=== PATIENT | male | born 1990 | race Caucasian/White ===

== ENCOUNTER 2016-07-13 14:01 | Emergency (ER) | payer BC ==
[~2016-07-13] VITALS: Ht 185.4 cm; Wt 86.2 kg
[2016-07-13 14:05] VITALS: BP 134/83
[2016-07-13 14:48] LABS: BASOPHILS # (AUTO) 0.2 K/uL (0.00-0.22); EOSINOPHILS # (AUTO) 0.1 K/uL (0-0.4); EOSINOPHILS % (AUTO) 1.4 % (0.0-4.0); HEMATOCRIT 43.5 % (36-52); HEMOGLOBIN 14.8 g/dL (12.0-18.0); LYMPHOCYTES # (AUTO) 2.2 K/uL (2.0-11.5); LYMPHOCYTES % (AUTO) 30.8 % (20.5-51.1); MEAN CORPUSCULAR HEMOGLOBIN 29 pg (27-31); MEAN CORPUSCULAR HGB CONC 34 g/dL (33-37); MEAN CORPUSCULAR VOLUME 86 fL (80-94); MONOCYTES # (AUTO) 0.3 K/uL (0.8-1.0); MONOCYTES % (AUTO) 4.8 % (1.7-9.3); NEUTROPHILS # (AUTO) 4.5 K/uL (1.8-7.7); PLATELET COUNT (AUTO) 300 K/uL (140-450); RED BLOOD CELL COUNT(AUTO) 5.05 MIL/uL (4.20-6.10); WHITE BLOOD COUNT (AUTO) 7.3 K/uL (4.8-10.8)
[2016-07-13 14:54] LABS: ANION GAP 12.9 (8-16); CALCIUM 9.1 mg/dL (8.5-10.1); CREATININE 1.3 mg/dL (0.6-1.3); POTASSIUM 3.9 mmol/L (3.5-5.1)
[2016-07-13 15:00] LABS: ALBUMIN 4.5 g/dL (3.4-5.0); TOTAL BILIRUBIN 0.3 mg/dL (0.0-1.0); TOTAL PROTEIN, SERUM 8.1 g/dL (6.4-8.2)
--- NOTE | 2016-07-13 15:35 | NUR ---
Pt taken to bed 7.
--- NOTE | 2016-07-13 15:44 | NUR ---
25/M presents to ED for evaluation of epigastric pain starting approximately 1330. Pt states "I was at work, sitting down." Pt c/o sharp pain to epigastric area, denies chest pain, radiating to upper back, intermittent. Pt denies pain at this time. Pt states "the pain was coming and going on the way here." Denies N/V/D. Denies fever or chills. Abdomen soft, non tender, active bowel sounds x 4 quadrants. Patient denies any medical hx. Patient is AOX4, clear coherent speech. All needs met. Pt is calm and relaxed, no signs of distress. VSS.
--- NOTE | 2016-07-13 16:47 | NUR ---
Dr. Escobedo evaluating patient at bedside.
[2016-07-13 17:10] VITALS: BP 143/76
--- NOTE | 2016-07-13 17:11 | NUR ---
Patient discharged with v/s stable. Written and verbal after care instructions given and explained. Patient verbalized understanding. Ambulatory with steady gait. All questions addressed prior to discharge. Advised to follow up with PMD.
== END 2016-07-13 17:11 | disposition home or self-care (01) ==
LOC: MED 14:01
DX: R10.13 Epigastric pain (principal); R07.89 Other chest pain
CPT/HCPCS: 36415; 80053; 83690; 84484; 85025; 93005; 99285

== ENCOUNTER 2018-05-24 22:48 | Emergency (ER) | payer BC ==
[~2018-05-24] VITALS: Ht 185.4 cm; Wt 98.0 kg
[2018-05-24 23:13] VITALS: BP 142/81
--- NOTE | 2018-05-24 23:22 | NUR ---
PT AMBULATED TO ER BED #4.
--- NOTE | 2018-05-24 23:40 | NUR ---
27 YEARS OLD MALE PRESENT ER WITH SORETHROAT WITH DRY COUGH X 2DAYS. DENIES N/V/D. AAO X4. NO FEVER. NO HX OF MEDICAL PROBLEM. PATIENT REPORTED HE TOOK PENICILLIN X 2TIMES BEFORE HE CAME TO ER.
--- NOTE | 2018-05-24 23:42 | NUR ---
Dr. Arias evaluating patient at bedside.
[2018-05-25 00:10] VITALS: BP 145/76
--- NOTE | 2018-05-25 00:12 | NUR ---
Patient discharged with v/s stable. Written and verbal after care instructions given and explained. Patient alert, oriented and verbalized understanding of instructions. Ambulatory with steady gait. All questions addressed prior to discharge. ID band removed. Patient advised to follow up with PMD. Rx of [id number], PROMRTHAZINE HYDROCHLORIDE/ DEXTROMETHORTPHAN HYDROBROMIDE 6.25MG-15MG/5ML given. Patient educated on indication of medication including possible reaction and side effects. Opportunity to ask questions provided and answered.
== END 2018-05-25 00:12 | disposition home or self-care (01) ==
LOC: MED 22:48
DX: J04.0 Acute laryngitis (principal)
CPT/HCPCS: 36415; 87804; 99283